=== PATIENT | female | born 1930 | race Caucasian/White ===

== ENCOUNTER 2016-10-16 09:52 | Emergency (ER) | payer OTHER, BC ==
[~2016-10-16] VITALS: Ht 162.6 cm; Wt 56.2 kg
[~2016-10-16 09:52] MED LIST: AMIO200T4 PO; AMLO10TA2 PO; AMOX500C3 PO; ASPI1TAB83 PO; ATOR-22 PO; CHOL1000 PO; FLNIN NAE; HYDR-5688 PO; LEVO125T5 PO; LOSA100T2 PO; MAGN400T6 PO; MILK1CAP PO; MISCCAP80 PO; OMEG10007 PO; POLY335019 PO; PROP160C PO; SENNTAB23 PO; TURM1CAP4 PO; WARF-283 PO; WARF4TAB43 PO; XNX25 PO
[2016-10-16 09:59] VITALS: TEMP 36.7; Ht 162.6 cm; Wt 56.2 kg
[2016-10-16] MEDS ORDERED: OXYCODONE HCL IR 5 MG TAB (IMMEDIATE RELEASE) PO STA (10:15)
--- NOTE | 2016-10-16 10:32 | DIAGNOSTIC IMAGING REPORT ---
LEFT WRIST W/NAVICULAR MIN 3 VIEWS CLINICAL HISTORY: WRIST PAIN pain COMPARISON: None. DISCUSSION: Severe degenerative change first carpometacarpal joint. Moderate degenerative change of all remaining intraosseous regions. Mild chondrocalcinosis. No well-defined evidence for fracture. There is no evidence for soft tissue swelling. IMPRESSION: Severe degenerative change primarily of the first and to lesser extent second carpometacarpal joint. Electronically signed by: Yifan Adame M.D. 10/16/2016 10:30 AM Dictated Date/Time: 10/16/2016 10:29 AM
[2016-10-16] MEDS ORDERED: LOSARTAN-HCTZ PO (11:26)
[2016-10-16] MEDS ORDERED: FLNIN/ INH (11:26)
[2016-10-16] MEDS ORDERED: CELE1CAP30 PO (11:26)
[2016-10-16] MEDS ORDERED: OXYC1TAB3 PO (11:39)
[2016-10-16] MEDS ORDERED: CEPH-571 PO (11:39)
--- NOTE | 2016-10-16 11:44 | EMERGENCY ROOM VISIT NOTE ---
History Report prepared by Maria Elena: Bhavana Gomez Under the Supervision of: Dr. Cabrera Zelaya D.O. First contact with patient: 10:04 Chief Complaint: WRIST PAIN Stated Complaint: LEFT WRIST PAIN History of Present Illness The patient is an 86 year old female who presents to the Emergency Room with complaints of persistent left wrist pain starting 2 days ago. She rates her discomfort as a 10/10 in severity. She woke up in the morning with some wrist pain. She believed she might have done something to it when she was sleeping. Yesterday she did not have as much pain. She was able to go to the gym and do her daily activities, but by the evening the pain had become worse. She was unable to sleep because of the pain. The pain worsens with extension of her arm. She does not remember any trauma to her wrist. She has no history of gout. She is on blood thinners. Source of History: patient Onset: 2 days ago Position: wrist (left) Symptom Intensity: 10/10 Quality: other (pain) Timing: other (persistent) Modifying Factors (Worsening): movement Review of Systems See HPI for pertinent positives & negatives. A total of 10 systems reviewed and were otherwise negative. Past Medical & Surgical Medical Problems: (1) Benign hypertension (2) Hyperlipidemia (3) Microscopic colitis Family History Heart disease Social History Smoking Status: Never Smoker Alcohol Use: occasionally Drug Use: none Marital Status: Housing Status: lives alone Occupation Status: retired Current/Historical Medications Scheduled Amiodarone Hcl (Cordarone), 200 MG PO QAM Amlodipine Besylate (Norvasc), 10 MG PO DAILY Aspirin (Aspirin), 81 MG PO QAM Atorvastatin (Lipitor), 20 MG PO DAILY Cephalexin (Keflex), 1 CAP PO BID Cholecalciferol (Vitamin D3), 2,000 PO DAILY Fish Oil ([place]-3), 1 CAP PO DAILY Fluticasone Propionate (Fluticasone Propionate), 1 SPRAY INH QAM Levothyroxine Sodium (Levothyroxine Sodium), 125 MCG PO QAM Magnesium Oxide (Mag-Ox), 400 MG PO DAILY Milk Thistle (Silybum Marianum (Milk Thistle), 500 MG PO QAM Polyethylene Glycol 3350 (Miralax), 17 GM PO DAILY Probiotic Product (Probiotic), 1 CAP PO QAM Sennosides-Docusate Sodium (Stool Softener), 1 TAB PO DAILY Turmeric (Curcuma Longa) (Turmeric), 500 MG PO QAM Warfarin Sodium (Warfarin Sodium), 2 MG PO UD Warfarin Sodium (Warfarin Sodium), 4 MG PO UD [Losartan-Hctz], 1 TAB PO QAM Scheduled PRN Alprazolam (Alprazolam), 0.5 MG PO HS PRN for Sleep Amoxicillin (Amoxil), 2,000 MG PO UD PRN for Prior To Dental Appointment Celecoxib (Celecoxib), 200 MG PO DAILY PRN for UD Hydrocodone/Acetaminophen 5MG/325MG ([place] 5MG/325MG), 1 TABLET PO Q4 PRN for Pain Hydrocodone/Acetaminophen 5MG/325MG ([place] 5MG/325MG), 1 TABLET PO Q6 PRN for Pain Oxycodone Ir (Roxicodone Ir), 5 MG PO Q6H PRN for Pain Allergies Coded Allergies: Sulfamethoxazole w/Trimethoprim (Verified Allergy, Intermediate, GI UPSET , SHAKING, 04/26/16) Morphine (Verified Adverse Reaction, Intermediate, nausea/vomiting, ) Acetaminophen (Unverified Adverse Reaction, Mild, UNSURE, 10/16/16) Oxycodone (Unverified Adverse Reaction, Mild, UNSURE, 10/16/16) Physical Exam Vital Signs Date Time Temp Pulse Resp B/P Pulse Ox O2 Delivery O2 Flow Rate FiO2 10/16/16 09:59 36.7 59 18 154/68 97 Room Air Physical Exam CONSTITUTIONAL/VITAL SIGNS: Reviewed / noted above. GENERAL: Non-toxic in appearance. INTEGUMENTARY: Warm, dry, and [place]. HEAD: Normocephalic. EYES: without scleral icterus or trauma. ENT/OROPHARYNX: clear and moist. LYMPHADENOPATHY/NECK: Is supple without lymphadenopathy or meningismus. RESPIRATORY: Lungs clear and equal. CARDIOVASCULAR: Regular rate and rhythm. GI/ABDOMEN: Soft and nontender. No organomegaly or pulsatile mass. No rebound or guarding. Normal bowel sounds. EXTREMITIES: Warm and well perfused. Mild redness overlying the lateral wrist in the area of the distal ulna/ulnar styloid. Small scab overlying the area. This is tender to palpation. There is increased pain in the inflamed area with extension of the forearm. BACK: No CVA tenderness. NEUROLOGICAL: Intact without focal deficits. PSYCHIATRIC: normal affect. MUSCULOSKELETAL: Normally developed with good muscle tone. Medical Decision & Procedures ER Provider Diagnostic Interpretation: X ray results and stated below per my interpretation and radiology interpretation. LEFT WRIST W/NAVICULAR MIN 3 VIEWS CLINICAL HISTORY: WRIST PAIN pain COMPARISON: None. DISCUSSION: Severe degenerative change first carpometacarpal joint. Moderate degenerative change of all remaining intraosseous regions. Mild chondrocalcinosis. No well-defined evidence for fracture. There is no evidence for soft tissue swelling. IMPRESSION: Severe degenerative change primarily of the first and to lesser extent second carpometacarpal joint. Electronically signed by: Yifan Adame M.D. 10/16/2016 10:30 AM Dictated Date/Time: 10/16/2016 10:29 AM Medications Administered Medications (Trade) Dose Ordered Sig/Go Route Start Time Stop Time Status Last Admin Dose Admin Oxycodone HCl (Roxicodone Immediate Rel Tab) 5 mg NOW STAT PO 10/16/16 10:15 10/16/16 10:16 DC 10/16/16 10:22 5 MG ED Course 1006: Previous medical records were reviewed. The patient was evaluated in room B3B. A complete history and physical examination was performed. 1015: Oxycodone HCl 5 mg PO. 1122: On reevaluation, the patient is resting comfortably. I discussed the results and findings with the patient. She verbalized agreement of the treatment plan. She was discharged home. Medical Decision Differential diagnoses: cellulitis, osteomyelitis, gout, trauma This is an 86-year-old female who presents to the ED with a chief complaint of left ulnar wrist pain. The patient states that she awoke with it 2 days ago. She seemed to be somewhat better yesterday and was able to work out but last night her pain increases. She came in for evaluation. Her exam reveals normal vital signs and she is afebrile. The left wrist area reveals some erythema overlying the ulnar styloid. There is a small scab in that area as well. She has some tenderness on exam. X-rays did not show any obvious abnormalities other than chronic changes. The patient was started on Keflex. She was given an OxyIR here that seemed to help her pain. She did not have any issue with oxycodone. Her daughter reports that she had gotten nauseated taking some medication previously and it was felt to be related to Percocet. The patient has no other complaints. She is felt to be stable for discharge. Impression Primary Impression: Cellulitis of wrist Scribe Attestation The scribe's documentation has been prepared under my direction and personally reviewed by me in its entirety. I confirm that the note above accurately reflects all work, treatment, procedures, and medical decision making performed by me. Departure Information Dispostion Home / Self-Care Prescriptions Oxycodone Ir (Roxicodone Ir) 5 Mg Tab 5 MG PO Q6H Y for Pain, #15 TAB Prov: Cabrera Zelaya D.O. 10/16/16 Cephalexin (KEFLEX) 500 Mg Cap 1 CAP PO BID for 7 Days, #14 CAP Prov: Cabrera Zelaya D.O. 10/16/16 Referrals Esther Ervin M.D. (PCP) Patient Instructions Cellulitis - [facility], [facility] Additional Instructions Keflex as prescribed for infection. Oxycodone as prescribed. No driving within 6 hours of use. This may cause constipation. Use sparingly. Follow-up with your doctor for recheck early next week if symptoms persist. Return for severe worsening.
[2016-10-16] MEDS ORDERED: CEPHALEXIN MONOHYDRATE 250 MG CAP PO ONE (11:45)
[2016-10-16 12:00] VITALS: BP 114/75; PULSE 73; O2SAT 97
[2017-05-07] MEDS ORDERED: HYZ/10015 PO (00:29)
[2017-05-07] MEDS ORDERED: LEVO112T4 PO (00:34)
[2017-05-07] MEDS ORDERED: ALPR-411 PO (00:36)
[2017-05-07] MEDS ORDERED: ACET-1256 PO (00:37)
[2017-05-07] MEDS ORDERED: MELO7.5T5 PO (00:37)
[2017-05-07] MEDS ORDERED: PRIM50TA29 PO (00:38)
[2017-05-07] MEDS ORDERED: METO50TA7 PO (00:40)
== END 2016-10-16 12:00 | disposition home or self-care (01) ==
LOC: C.EDB 09:53
DX: L03.114 Cellulitis of left upper limb (principal); I10 Essential (primary) hypertension; E78.5 Hyperlipidemia, unspecified; Z79.01 Long term (current) use of anticoagulants; Z79.82 Long term (current) use of aspirin; Z79.899 Other long term (current) drug therapy; Z82.49 Family history of ischemic heart disease and other diseases of the circulatory system

== ENCOUNTER 2017-01-21 10:09 | Emergency (ER) | payer OTHER, BC ==
[~2017-01-21] VITALS: Ht 162.6 cm; Wt 53.6 kg
[~2017-01-21 10:09] MED LIST changes: +CELE1CAP30 PO; -FLNIN NAE; +FLNIN/ INH; +LEVO125T4 PO; -LEVO125T5 PO; -LOSA100T2 PO; +LOSARTAN-HCTZ PO; +OXYC1TAB3 PO; -PROP160C PO
[2017-01-21 10:10] VITALS: TEMP 37; Ht 162.6 cm; Wt 53.6 kg
[2017-01-21] MEDS ORDERED: ONDANSETRON 8 MG/54 ML D5W IV STA (10:24)
[2017-01-21] MEDS ORDERED: SODIUM CHLORIDE 0.9% 1000ML 1,000 ML IV STA (10:24)
[2017-01-21 10:40] LABS: BASO % 0.6 %; BASO ABS # 0.04 K/uL (0-0.2); COMPLETE YES; EOS % 1.1 %; HEMATOCRIT 41.5 % (37-47); IG% 0.3 %; LYMPH % 18.7 %; LYMPH ABS # 1.24 K/uL (1.2-3.4); MEAN CELL VOLUME 97.2 fL (80-100); MEAN CORPUSCULAR HEMOGLOBIN 32.8 pg (25-34); MEAN CORPUSCULAR HGB CONC 33.7 g/dl (32-36); MEAN PLATELET VOLUME 8.5 fL (7.4-10.4); MONO % 13.7 %; NEUT % 65.6 %; PLATELET COUNT 256 K/uL (130-400); RED BLOOD COUNT 4.27 M/uL (4.2-5.4); WHITE BLOOD COUNT 6.64 K/uL (4.8-10.8)
--- NOTE | 2017-01-21 10:45 | DIAGNOSTIC IMAGING REPORT ---
CHEST ONE VIEW PORTABLE CLINICAL HISTORY: Altered mental status. Weakness. COMPARISON STUDY: Chest radiograph March 01, 2014. FINDINGS: Lung volumes are normal. There is no pneumothorax or pleural effusion. Cardiomediastinal silhouette is stable. There is no evidence of pulmonary edema. There is mild levoscoliosis at the thoracolumbar junction. IMPRESSION: No acute cardiopulmonary findings. Electronically signed by: Tommy Benavides M.D. 01/21/2017 10:44 AM Dictated Date/Time: 01/21/2017 10:44 AM
[2017-01-21 10:48] LABS: INR 1.9 (0.9-1.1); PARTIAL THROMBOPLASTIN RATIO 1.3; PROTHROMBIN TIME (PATIENT) 20.9 SECONDS (9.0-12.0)
--- NOTE | 2017-01-21 10:53 | DIAGNOSTIC IMAGING REPORT ---
HEAD WITHOUT CONTRAST (CT) HISTORY: Acute altered mental status and weakness. TECHNIQUE: Multiple axial CT images of the head were obtained without contrast. CT DOSE: 614.27 mGy.cm COMPARISON: CT head 03/01/2014 and 08/02/2012. FINDINGS: No acute intracranial hemorrhage, midline shift, mass, large territorial ischemia or abnormal extra-axial collection. There is moderate cerebral atrophy with confluent areas of low attenuation within the subcortical, deep and periventricular white matter of the cerebral and measures bilaterally suggesting chronic microvascular ischemic changes, slightly progressed from 03/01/2014. 1.4 x 1.0 cm area of low attenuation in the inferior right lentiform nucleus is again seen suggesting remote lacunar infarction. The calvarium is intact. The mastoid air cells and middle ear cavities are clear. Marked mucosal thickening is again seen involving the bilateral maxillary sinuses with near complete opacification of the right sphenoid sinus. Mild mucosal disease is also noted within the ethmoid and frontal sinuses. The periosteal thickening of the sinuses is also appreciated. Partially calcified pannus is seen surrounding the dens. Soft tissues are within normal limits. Prior bilateral cataract repair. IMPRESSION: 1. No acute intracranial abnormality identified. No hemorrhage or area of large territorial ischemia. 2. Moderate cerebral atrophy with progressive chronic microvascular ischemic changes. 3. Severe chronic paranasal sinus disease redemonstrated. The above report was generated using voice recognition software. It may contain grammatical, syntax or spelling errors. Electronically signed by: Albert Dowd M.D. 01/21/2017 10:52 AM Dictated Date/Time: 01/21/2017 10:47 AM
[2017-01-21 10:59] LABS: ALT/SGPT 73 U/L (12-78); AST/SGOT 64 U/L (15-37); BLOOD UREA NITROGEN 18 mg/dl (7-18); BUN/CREATININE RATIO 18.3 (10-20); CALCIUM 9.1 mg/dl (8.5-10.1); CARBON DIOXIDE 28 mmol/L (21-32); CHLORIDE 100 mmol/L (98-107); CREATININE 0.96 mg/dl (0.60-1.20); GLUCOSE 101 mg/dl (70-99); MAGNESIUM 1.7 mg/dl (1.8-2.4); POTASSIUM 4.2 mmol/L (3.5-5.1); SODIUM 135 mmol/L (136-145)
[2017-01-21 11:08] LABS: ALKALINE PHOSPHATASE 108 U/L (45-117); CKMB/CK RATIO 1.3 (0-3.0); THYROID STIMULATING HORMONE 0.338 uIu/ml (0.300-4.500)
[2017-01-21] MEDS ORDERED: PROP60CA5 PO (11:27)
[2017-01-21] MEDS ORDERED: PRIM50TA29 PO (11:28)
[2017-01-21] MEDS ORDERED: DICL1GEL12 TOP (11:30)
--- NOTE | 2017-01-21 11:42 | EMERGENCY ROOM VISIT NOTE ---
History Report prepared by Maria Elena: Toro Curry Under the Supervision of: Dr. Cabrera Zelaya D.O. First contact with patient: 10:16 Chief Complaint: STROKE SYMPTOMS Stated Complaint: WHOLE BODY FEELS ODD History of Present Illness The patient is a 86 year old female who presents to the Emergency Room with complaints of a persistent altered mental status beginning shortly prior to arrival. She states "I don't feel myself". She states that she feels like she is outside of her body. The patient also complains of shakiness and nausea. She states that she feels very unsteady. She denies any headache, abdominal pain, chest pain, SOB, or vomiting. The patient states "I just feel scared" and states "something is wrong". She is on Coumadin, but is not sure for what. She denies any recent cold-like symptoms. The patient notes that she has a history of tremors. She states that her PCP has been increasing her medication for tremors and recently began taking triple the dose of what she was originally taking. Source of History: patient Onset: shortly prior to arrival Quality: other (altered mental status) Timing: other (persistent) Associated Symptoms: + nausea, No headache, No chest pain, No SOB, No abdominal pain Note: The patient also complains of shakiness. Review of Systems See HPI for pertinent positives & negatives. A total of 10 systems reviewed and were otherwise negative. Past Medical & Surgical Medical Problems: (1) Benign hypertension (2) Hyperlipidemia (3) Microscopic colitis Family History Heart disease Social History Smoking Status: Never Smoker Alcohol Use: occasionally Drug Use: none Marital Status: Housing Status: lives alone Occupation Status: retired Current/Historical Medications Scheduled Amiodarone Hcl (Cordarone), 200 MG PO QAM Amlodipine Besylate (Norvasc), 10 MG PO QAM Aspirin (Aspirin), 81 MG PO QAM Atorvastatin (Lipitor), 20 MG PO DAILY Cholecalciferol (Vitamin D3), 2,000 PO DAILY Diclofenac Sodium (Topical) (Voltaren 1% Top Gel), 2 GM TOP UD Fish Oil ([place]-3), 1 CAP PO DAILY Fluticasone Propionate (Fluticasone Propionate), 1 SPRAY INH QAM Levothyroxine Sodium (Levothyroxine Sodium), 125 MCG PO QAM Magnesium Oxide (Mag-Ox), 400 MG PO HS Milk Thistle (Silybum Marianum (Milk Thistle), 500 MG PO QAM Polyethylene Glycol 3350 (Miralax), 17 GM PO DAILY Primidone (Mysoline), 50 MG PO QAM Probiotic Product (Probiotic), 1 CAP PO QAM Propranolol La (Inderal La), 160 MG PO QAM Sennosides-Docusate Sodium (Stool Softener), 1 TAB PO DAILY Turmeric (Curcuma Longa) (Turmeric), 500 MG PO QAM Warfarin Sodium (Warfarin Sodium), 2 MG PO UD Warfarin Sodium (Warfarin Sodium), 4 MG PO UD [Losartan-Hctz], 1 TAB PO QAM Scheduled PRN Amoxicillin (Amoxil), 2,000 MG PO UD PRN for Prior To Dental Appointment Hydrocodone/Acetaminophen 5MG/325MG ([place] 5MG/325MG), 1 TABLET PO Q4 PRN for Pain Allergies Coded Allergies: Sulfamethoxazole w/Trimethoprim (Verified Allergy, Intermediate, GI UPSET , SHAKING, 01/21/17) Morphine (Verified Adverse Reaction, Intermediate, nausea/vomiting, ) Acetaminophen (Unverified Adverse Reaction, Mild, UNSURE, 01/21/17) Oxycodone (Unverified Adverse Reaction, Mild, UNSURE, 01/21/17) Physical Exam Vital Signs Date Time Temp Pulse Resp B/P (MAP) Pulse Ox O2 Delivery O2 Flow Rate FiO2 01/21/17 11:12 68 18 136/56 95 Room Air 01/21/17 10:27 64 01/21/17 10:10 37.0 65 22 144/64 95 Room Air Physical Exam VITAL SIGNS: were reviewed as above. GENERAL:Non-toxic in appearance. SKIN: Warm dry and pink. HEAD: Normocephalic and atraumatic. OROPHARYNX: Is clear and moist NECK: Supple without lymphadenopathy or meningismus. LUNGS: clear. HEART: Regular rate and rhythm. ABDOMEN: Soft and nontender. EXTREMITIES: Warm and well perfused. NEUROLOGICALLY: Awake alert and oriented without focal deficit. Cranial nerves 2 -12 are intact. There is no pronator drift. Cerebellar testing is within normal limits. There is no nystagmus. There is no facial droop. Speech is clear. Vision is grossly normal. Continuous light tremors in the hands. MUSCULOSKELETAL: Good muscle tone. No evidence of trauma. Medical Decision & Procedures ER Provider Diagnostic Interpretation: Radiology results as stated below per my review and radiologist interpretation: HEAD WITHOUT CONTRAST (CT) FINDINGS: No acute intracranial hemorrhage, midline shift, mass, large territorial ischemia or abnormal extra-axial collection. There is moderate cerebral atrophy with confluent areas of low attenuation within the subcortical, deep and periventricular white matter of the cerebral and measures bilaterally suggesting chronic microvascular ischemic changes, slightly progressed from 03/01/2014. 1.4 x 1.0 cm area of low attenuation in the inferior right lentiform nucleus is again seen suggesting remote lacunar infarction. The calvarium is intact. The mastoid air cells and middle ear cavities are clear. Marked mucosal thickening is again seen involving the bilateral maxillary sinuses with near complete opacification of the right sphenoid sinus. Mild mucosal disease is also noted within the ethmoid and frontal sinuses. The periosteal thickening of the sinuses is also appreciated. Partially calcified pannus is seen surrounding the dens. Soft tissues are within normal limits. Prior bilateral cataract repair. IMPRESSION: 1. No acute intracranial abnormality identified. No hemorrhage or area of large territorial ischemia. 2. Moderate cerebral atrophy with progressive chronic microvascular ischemic changes. 3. Severe chronic paranasal sinus disease redemonstrated. The above report was generated using voice recognition software. It may contain grammatical, syntax or spelling errors. Electronically signed by: Albert Dowd M.D. CHEST ONE VIEW PORTABLE FINDINGS: Lung volumes are normal. There is no pneumothorax or pleural effusion. Cardiomediastinal silhouette is stable. There is no evidence of pulmonary edema. There is mild levoscoliosis at the thoracolumbar junction. IMPRESSION: No acute cardiopulmonary findings. Electronically signed by: Tommy Benavides M.D. Laboratory Results 01/21/17 10:22 Red Blood Count 4.27, Mean Corpuscular Volume 97.2, Mean Corpuscular Hemoglobin 32.8, Mean Corpuscular Hemoglobin Concent 33.7, Mean Platelet Volume 8.5, Neutrophils (%) (Auto) 65.6, Lymphocytes (%) (Auto) 18.7, Monocytes (%) (Auto) 13.7, Eosinophils (%) (Auto) 1.1, Basophils (%) (Auto) 0.6, Neutrophils # (Auto ) 4.36, Lymphocytes # (Auto) 1.24, Monocytes # (Auto) 0.91, Eosinophils # (Auto ) 0.07, Basophils # (Auto) 0.04 01/21/17 10:22 Test 01/21/17 10:22 White Blood Count 6.64 K/uL (4.8-10.8) Red Blood Count 4.27 M/uL (4.2-5.4) Hemoglobin 14.0 g/dL (12.0-16.0) Hematocrit 41.5 % (37-47) Mean Corpuscular Volume 97.2 fL (80-100) Mean Corpuscular Hemoglobin 32.8 pg (25-34) Mean Corpuscular Hemoglobin Concent 33.7 g/dl (32-36) Platelet Count 256 K/uL (130-400) Mean Platelet Volume 8.5 fL (7.4-10.4) Neutrophils (%) (Auto) 65.6 % Lymphocytes (%) (Auto) 18.7 % Monocytes (%) (Auto) 13.7 % Eosinophils (%) (Auto) 1.1 % Basophils (%) (Auto) 0.6 % Neutrophils # (Auto) 4.36 K/uL (1.4-6.5) Lymphocytes # (Auto) 1.24 K/uL (1.2-3.4) Monocytes # (Auto) 0.91 K/uL (0.11-0.59) Eosinophils # (Auto) 0.07 K/uL (0-0.5) Basophils # (Auto) 0.04 K/uL (0-0.2) RDW Standard Deviation 48.8 fL (36.4-46.3) RDW Coefficient of Variation 13.8 % (11.5-14.5) Immature Granulocyte % (Auto) 0.3 % Immature Granulocyte # (Auto) 0.02 K/uL (0.00-0.02) Prothrombin Time 20.9 SECONDS (9.0-12.0) Prothromb Time International Ratio 1.9 (0.9-1.1) Activated Partial Thromboplast Time 33.8 SECONDS (21.0-31.0) Partial Thromboplastin Ratio 1.3 Anion Gap 7.0 mmol/L (3-11) Est Creatinine Clear Calc Drug Dose 36.3 ml/min Estimated GFR () 62.5 Estimated GFR (Non- 53.9 BUN/Creatinine Ratio 18.3 (10-20) Calcium Level 9.1 mg/dl (8.5-10.1) Magnesium Level 1.7 mg/dl (1.8-2.4) Total Bilirubin 0.7 mg/dl (0.2-1) Direct Bilirubin 0.2 mg/dl (0-0.2) Aspartate Amino Transf (AST/SGOT) 64 U/L (15-37) Alanine Aminotransferase (ALT/SGPT) 73 U/L (12-78) Alkaline Phosphatase 108 U/L (45-117) Total Creatine Kinase 76 U/L (26-192) Creatine Kinase MB 1.0 ng/ml (0.5-3.6) Creatine Kinase MB Ratio 1.3 (0-3.0) Troponin I < 0.015 ng/ml (0-0.045) Total Protein 7.4 gm/dl (6.4-8.2) Albumin 3.5 gm/dl (3.4-5.0) Lipase 167 U/L (73-393) Thyroid Stimulating Hormone (TSH) 0.338 uIu/ml (0.300-4.500) Laboratory results as stated above per my review. Medications Administered Medications (Trade) Dose Ordered Sig/Go Route Start Time Stop Time Status Last Admin Dose Admin Sodium Chloride 1,000 ml @ 999 mls/hr Q1H1M STAT IV 01/21/17 10:24 01/21/17 11:24 DC 01/21/17 10:33 999 MLS/HR Ondansetron HCl (Zofran 8mg Iv) 8 mg NOW STAT IV 01/21/17 10:24 01/21/17 10:25 DC 01/21/17 10:33 8 MG ECG Indication: altered mental status Rate (beats per minute): 64 Rhythm: normal sinus Findings: RBBB, T-wave inversion (Inferior) Comparison ECG Date: March 01, 2014 Change: Slight T-wave changes likely related to lead placement. ED Course 1018: Previous medical records were reviewed. The patient was evaluated in room B4B. A complete history and physical examination was performed. 1024: Ordered Zofran 8 mg IV, Sodium Chloride 1000 ml @ 999 mls/hr IV. 11:39 Reassessment. Patient w/o additional complaints. Medical Decision Differential includes acute coronary syndrome, myocardial infarction, CVA, TIA, anemia, infection, pneumonia, UTI, pyelonephritis, poor nutrition, dehydration, electrolyte disturbance, hypoglycemia. This is an 86-year-old female who presents to the ED with a chief complaint of not feeling herself this morning. The patient states that she awoke around 6 AM and felt weird as if something was wrong. She felt a little weak and unsteady and shaky. She reports a history of tremors. She states that her doctors placed her on some medication and her tremors have worsened. They have not improved. She has a history of paroxysmal A. fib. She is on Coumadin. She denies any additional specific symptoms. Her vital signs are stable. Her physical exam and neuro exam were unremarkable with exception of a mild continuous tremor. This tremor is noticeable in the hands. The patient has no other significant findings on exam. A CT scan of the head did not show any acute process. A chest x-ray did not show any acute disease. INR is 1.9. CBC and complete metabolic panel were unremarkable. The patient was treated with Zofran and fluids IV. She was told the results. She is felt to be stable for discharge and outpatient follow-up. Medication Reconcilliation Current Medication List: was personally reviewed by me Blood Pressure Screening Patient's blood pressure: Elevated blood pressure Blood pressure disposition: Referred to PCP Impression Primary Impression: Weakness Scribe Attestation The scribe's documentation has been prepared under my direction and personally reviewed by me in its entirety. I confirm that the note above accurately reflects all work, treatment, procedures, and medical decision making performed by me. Departure Information Dispostion Home / Self-Care Referrals Esther Ervin M.D. (PCP) Patient Instructions My [facility] Additional Instructions Follow-up with your doctor for further care and evaluation in 1-2 days. Return to the emergency department for worsening or new symptoms or any concerns. You have been examined and treated today on an emergency basis only. This is not a substitute for, or an effort to provide, complete comprehensive medical care. It is impossible to recognize and treat all injuries or illnesses in a single emergency department visit. It is therefore important that you follow up closely with your doctor. Call as soon as possible for an appointment.
[2017-01-21 12:04] VITALS: BP 152/62; PULSE 72; O2SAT 97
== END 2017-01-21 12:05 | disposition home or self-care (01) ==
LOC: C.EDB 10:10
DX: R53.1 Weakness (principal); I48.0 Paroxysmal atrial fibrillation; I10 Essential (primary) hypertension; E78.5 Hyperlipidemia, unspecified; Z79.01 Long term (current) use of anticoagulants; Z79.82 Long term (current) use of aspirin; Z79.899 Other long term (current) drug therapy

== ENCOUNTER 2017-09-21 09:48 | Emergency (ER) | payer OTHER, BC ==
[~2017-09-21] VITALS: Ht 162.6 cm; Wt 59.2 kg
[~2017-09-21 09:48] MED LIST changes: +ACET-1256 PO; +ALPR-411 PO; -CELE1CAP30 PO; +DICL1GEL12 TOP; +HYZ/10015 PO; +LEVO112T4 PO; -LEVO125T4 PO; +LEVO125T5 PO; -LOSARTAN-HCTZ PO; +MELO7.5T5 PO; +METO50TA8 PO; -OXYC1TAB3 PO; +PRIM50TA29 PO; -XNX25 PO
[2017-09-21 09:51] VITALS: TEMP 36.7; Ht 162.6 cm; Wt 59.2 kg
[2017-09-21] MEDS ORDERED: KETOROLAC TROMETHAMINE 60 MG/2 ML VIAL IM STA (10:28)
[2017-09-21 11:20] VITALS: BP 149/57; PULSE 68; O2SAT 96
--- NOTE | 2017-09-21 11:27 | DIAGNOSTIC IMAGING REPORT ---
R PELVIS/UNILATERAL HIP 2-3VIEWS CLINICAL HISTORY: r hip pain pain COMPARISON: None. DISCUSSION: Significant degenerative change of the hips bilaterally. No evidence for fracture or dislocation. Slightly heterogeneous bone marrow mineralization. Considerable degenerative changes low lumbar spine. There is no evidence for soft tissue swelling. IMPRESSION: Significant degenerative change of both hips. No acute bony abnormality. Heterogeneous bone density characteristics. Bone scan on a routine basis is suggested when the patient is able. The above report was generated using voice recognition software. It may contain grammatical, syntax or spelling errors. Electronically signed by: Yifan Adame M.D. 09/21/2017 11:25 AM Dictated Date/Time: 09/21/2017 11:21 AM
--- NOTE | 2017-09-21 11:29 | DIAGNOSTIC IMAGING REPORT ---
LUMBAR SPINE 2 OR 3 VIEWS CLINICAL HISTORY: r SI pain pain COMPARISON STUDY: None FINDINGS: Considerable degenerative disc change at the entire lumbar region. Severe loss of joint space throughout. Moderate scoliosis. No evidence for an acute compression deformity. IMPRESSION: Severe degenerative change. No acute bony abnormality. The above report was generated using voice recognition software. It may contain grammatical, syntax or spelling errors. Electronically signed by: Yifan Adame M.D. 09/21/2017 11:27 AM Dictated Date/Time: 09/21/2017 11:27 AM
--- NOTE | 2017-09-21 11:33 | DIAGNOSTIC IMAGING REPORT ---
R KNEE 3 VIEWS CLINICAL HISTORY: r knee pain pain COMPARISON: None. DISCUSSION: Severe degenerative change all major joint compartments. This is most prominent medially where [id number] configuration is present. There is diffuse irregularity of the articular services the medial joint compartment and to lesser extent patellofemoral joint. Chondrocalcinosis is present. Degenerative changes of patellofemoral joint is significant. No evidence for significant joint effusion. There is no evidence for soft tissue swelling. IMPRESSION: Severe degenerative change primarily the medial joint compartment. Chondrocalcinosis. No acute bony abnormality. The above report was generated using voice recognition software. It may contain grammatical, syntax or spelling errors. Electronically signed by: Yifan Adame M.D. 09/21/2017 11:31 AM Dictated Date/Time: 09/21/2017 11:31 AM
--- NOTE | 2017-09-21 11:35 | DIAGNOSTIC IMAGING REPORT ---
R SHOULDER MIN 2 VIEWS ROUTINE CLINICAL HISTORY: r shoulder pain pain COMPARISON: None. DISCUSSION: Moderate degenerative change glenohumeral joint. Mild calcific supraspinatus tendinitis. No evidence for fracture or dislocation. Right pulmonary apex is clear. There is no evidence for soft tissue swelling. IMPRESSION: 1. Mild/moderate calcific supraspinatus tendinitis. 2. Moderate degenerative change glenohumeral joint. The above report was generated using voice recognition software. It may contain grammatical, syntax or spelling errors. Electronically signed by: Yifan Adame M.D. 09/21/2017 11:33 AM Dictated Date/Time: 09/21/2017 11:33 AM
[2017-09-21] MEDS ORDERED: ACET-749 PO (11:52)
[2017-09-21] MEDS ORDERED: TYLENOL #3 HOME PACK PO ONE (12:00)
--- NOTE | 2017-09-21 17:24 | EMERGENCY ROOM VISIT NOTE ---
History Report prepared by Maria Elena: Bhavana Gomez Under the Supervision of: Dr. Itz Mariano D.O. First contact with patient: 10:12 Chief Complaint: PAIN (GENERALIZED) Stated Complaint: PAIN IN RIGHT SHOULDER AND KNEE History of Present Illness The patient is an 87 year old female who presents to the Emergency Room with complaints of intermittent right sided pain starting 3 months ago. The patient has been having pain in her right shoulder, hip, and knee. She currently rates her discomfort as a 10/10 in severity. Pain is mahoney and stabbing. This pain worsens with movement. She is on pain medications which have not been helping her pain. She denies any fall or trauma. She denies any numbness, weakness, groin numbness, headache, chest pain, SOB, abdominal pain, rash, or incontinence. The patient has been using her right arm as she is right handed. Source of History: patient Onset: 3 months ago Position: shoulder (right), knee (right), other (right hip) Symptom Intensity: 10/10 Quality: other (pain) Modifying Factors (Worsening): movement Associated Symptoms: No headache, No chest pain, No SOB, No abdominal pain, No weakness, No numbness, No rash Review of Systems See HPI for pertinent positives & negatives. A total of 10 systems reviewed and were otherwise negative. Past Medical & Surgical Medical Problems: (1) Benign hypertension (2) Hyperlipidemia (3) Microscopic colitis Family History Heart disease Social History Smoking Status: Never Smoker Alcohol Use: occasionally Drug Use: none Marital Status: Housing Status: lives alone Occupation Status: retired Current/Historical Medications Scheduled Amiodarone Hcl (Cordarone), 200 MG PO QAM Amlodipine Besylate (Norvasc), 10 MG PO QAM Aspirin (Aspirin), 81 MG PO QAM Atorvastatin (Lipitor), 20 MG PO DAILY Cholecalciferol (Vitamin D3), 2,000 PO DAILY Diclofenac Sodium (Topical) (Voltaren 1% Top Gel), 2 GM TOP UD Fish Oil ([place]-3), 1 CAP PO DAILY Hctz/Losartan (Hyzaar 25MG/100MG), 1 TAB PO QAM Levothyroxine Sodium (Levothyroxine Sodium), 125 MCG PO QAM Levothyroxine Sodium (Levothyroxine Sodium), 112 MCG PO DAILY Magnesium Oxide (Mag-Ox), 400 MG PO HS Metoprolol Succ (Toprol Xl) (Toprol-Xl), 50 MG PO DAILY Milk Thistle (Silybum Marianum (Milk Thistle), 500 MG PO QAM Primidone (Mysoline), 50 MG PO TID Probiotic Product (Probiotic), 1 CAP PO QAM Turmeric (Curcuma Longa) (Turmeric), 500 MG PO QAM Warfarin Sodium (Warfarin Sodium), 2 MG PO 3XWK Warfarin Sodium (Warfarin Sodium), 4 MG PO 4XWK Scheduled PRN Acetaminophen (Tylenol), 1,000 MG PO TID PRN for Pain Acetaminophen/Codeine (Tylenol W/Codeine #3), 1 TABS PO TID PRN for Pain Amoxicillin (Amoxil), 2,000 MG PO UD PRN for Prior To Dental Appointment Fluticasone Propionate (Fluticasone Propionate), 1 SPRAY INH QAM PRN for CONGESTION Hydrocodone/Acetaminophen 5MG/325MG ([place] 5MG/325MG), 1 TABLET PO Q4 PRN for Pain Meloxicam (Mobic), 7.5 MG PO DAILY PRN for Pain Polyethylene Glycol 3350 (Miralax), 17 GM PO DAILY PRN for Constipation Sennosides-Docusate Sodium (Stool Softener), 1 TAB PO DAILY PRN for Constipation Allergies Coded Allergies: Sulfamethoxazole w/Trimethoprim (Verified Allergy, Intermediate, GI UPSET , SHAKING, 01/21/17) Morphine (Verified Adverse Reaction, Intermediate, nausea/vomiting, ) Acetaminophen (Unverified Adverse Reaction, Mild, UNSURE, 01/21/17) Oxycodone (Unverified Adverse Reaction, Mild, UNSURE, 01/21/17) Physical Exam Vital Signs Date Time Temp Pulse Resp B/P (MAP) Pulse Ox O2 Delivery O2 Flow Rate FiO2 09/21/17 11:20 68 18 149/57 96 Room Air 09/21/17 09:51 36.7 74 20 138/65 98 Room Air Physical Exam GENERAL: Sitting up in bed, holding right shoulder internally rotated against chest, minimal distress. EYE EXAM: normal conjunctiva. OROPHARYNX: no exudate, no erythema, lips, buccal mucosa, and tongue normal and mucous membranes are moist NECK: supple, no nuchal rigidity, no adenopathy, non-tender LUNGS: Clear to auscultation. Normal chest wall mechanics HEART: no murmurs, S1 normal and S2 normal ABDOMEN: abdomen soft, non-tender, normo-active bowel sounds, no masses, no rebound or guarding. BACK: Back is symmetrical on inspection and there is no deformity, no midline tenderness, no CVA tenderness. Acute reproducible tenderness over the right SI joint tracking minimally into right gluteus. SKIN: no rashes and no bruising UPPER EXTREMITIES: Right shoulder moderate pain with abduction greater than 30 degrees and on palpation of humeral head. Flexion/extension elbow, wrist, grasp , abduction of digits intact. Radial pulses 2/4. LOWER EXTREMITIES: Flexion extension hip, knee, ankle, EHL 5/5 bilaterally. NEURO EXAM: Normal sensorium, cranial nerves II-XII grossly intact. Medical Decision & Procedures ER Provider Diagnostic Interpretation: Radiology results as stated below per my review and the radiologist's interpretation: R SHOULDER MIN 2 VIEWS ROUTINE CLINICAL HISTORY: r shoulder pain pain COMPARISON: None. DISCUSSION: Moderate degenerative change glenohumeral joint. Mild calcific supraspinatus tendinitis. No evidence for fracture or dislocation. Right pulmonary apex is clear. There is no evidence for soft tissue swelling. IMPRESSION: 1. Mild/moderate calcific supraspinatus tendinitis. 2. Moderate degenerative change glenohumeral joint. The above report was generated using voice recognition software. It may contain grammatical, syntax or spelling errors. Electronically signed by: Yifan Adame M.D. 09/21/2017 11:33 AM Dictated Date/Time: 09/21/2017 11:33 AM LUMBAR SPINE 2 OR 3 VIEWS CLINICAL HISTORY: r SI pain pain COMPARISON STUDY: None FINDINGS: Considerable degenerative disc change at the entire lumbar region. Severe loss of joint space throughout. Moderate scoliosis. No evidence for an acute compression deformity. IMPRESSION: Severe degenerative change. No acute bony abnormality. The above report was generated using voice recognition software. It may contain grammatical, syntax or spelling errors. Electronically signed by: Yifan Adame M.D. 09/21/2017 11:27 AM Dictated Date/Time: 09/21/2017 11:27 AM R KNEE 3 VIEWS CLINICAL HISTORY: r knee pain pain COMPARISON: None. DISCUSSION: Severe degenerative change all major joint compartments. This is most prominent medially where [id number] configuration is present. There is diffuse irregularity of the articular services the medial joint compartment and to lesser extent patellofemoral joint. Chondrocalcinosis is present. Degenerative changes of patellofemoral joint is significant. No evidence for significant joint effusion. There is no evidence for soft tissue swelling. IMPRESSION: Severe degenerative change primarily the medial joint compartment. Chondrocalcinosis. No acute bony abnormality. The above report was generated using voice recognition software. It may contain grammatical, syntax or spelling errors. Electronically signed by: Yifan Adame M.D. 09/21/2017 11:31 AM Dictated Date/Time: 09/21/2017 11:31 AM R PELVIS/UNILATERAL HIP 2-3VIEWS CLINICAL HISTORY: r hip pain pain COMPARISON: None. DISCUSSION: Significant degenerative change of the hips bilaterally. No evidence for fracture or dislocation. Slightly heterogeneous bone marrow mineralization. Considerable degenerative changes low lumbar spine. There is no evidence for soft tissue swelling. IMPRESSION: Significant degenerative change of both hips. No acute bony abnormality. Heterogeneous bone density characteristics. Bone scan on a routine basis is suggested when the patient is able. The above report was generated using voice recognition software. It may contain grammatical, syntax or spelling errors. Electronically signed by: Yifan Adame M.D. 09/21/2017 11:25 AM Dictated Date/Time: 09/21/2017 11:21 AM Medications Administered Medications (Trade) Dose Ordered Sig/Go Route Start Time Stop Time Status Last Admin Dose Admin Ketorolac Tromethamine (Toradol Inj) 10 mg NOW STAT IM 09/21/17 10:28 09/21/17 10:30 DC 09/21/17 10:47 10 MG Acetaminophen/ Codeine Phosphate (TYLENOL W/ CODEINE #3 Home Pack) 1 homepack UD ONCE PO 09/21/17 12:00 09/21/17 12:01 DC 09/21/17 11:58 1 HOMEPACK ED Course ED COURSE: Vital signs were reviewed and showed normal vitals. The patients medical record was reviewed The above diagnostic studies were performed and reviewed. ED treatments and interventions as stated above. 1022: The patient was evaluated in room B3B. A complete history and physical examination was performed. 1028: Toradol Inj 10 mg IM. 1149: Upon reevaluation, the patient is resting comfortably. I discussed my findings with the patient and she understands and agrees with the treatment plan. Based on the patients age, coexisting illnesses, exam and lab findings the decision to treat as an outpatient was made. The patient remained stable while under my care. The patient appeared well at the time of discharge. 1200: Acetaminophen/Codeine Phosphate 1 homepack PO. Medical Decision Differential diagnosis: Etiologies such as fracture, dislocation, neurovascular compromise, compartment syndrome, soft tissue injury, as well as others were entertained. Patient is an 87-year-old female who presents the ER for right shoulder, hip and knee pain. Shoulder appears to be musculoskeletal. Hip and knee, and back show degenerative changes. 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 Offered narcotics but she would like drive home. I gave her T3's due to her allergies. She is able to take Tylenol but she notes this does not work. Discussed with Pt concerning signs and symptoms to watch out for. Pt was instructed to follow up with their PCP and discussed with the patient their option to return to the ED at anytime for persistent or worsening symptoms. The appropriate anticipatory guidance and out- patient management, including indications for return to the emergency department , were explained at length to the patient and understood. Medication Reconcilliation Current Medication List: was personally reviewed by me Blood Pressure Screening Patient's blood pressure: Normal blood pressure Blood pressure disposition: Did not require urgent referral Impression Primary Impression: Back pain Additional Impressions: Tendonitis Right hip pain Right knee pain Scribe Attestation The scribe's documentation has been prepared under my direction and personally reviewed by me in its entirety. I confirm that the note above accurately reflects all work, treatment, procedures, and medical decision making performed by me. Departure Information Dispostion Home / Self-Care Prescriptions Acetaminophen/Codeine (Tylenol W/Codeine #3) 300 Mg/30 Mg Tab 1 TABS PO TID Y for Pain, #14 TAB Prov: Itz Mariano, 09/21/17 Referrals Esther Ervin M.D. (PCP) Forms HOME CARE DOCUMENTATION FORM, IMPORTANT VISIT INFORMATION, WORK / SCHOOL INSTRUCTIONS Patient Instructions Back Pain - [facility], ED Shoulder Pain O, My [facility] Additional Instructions Please follow up with your primary care doctor with in the next 24 hours. Any worsening of your symptoms, please return to the ED immediately. This includes any fevers greater than 100.4, worsening pain, chest pain, shortness breath, persistent nausea, vomiting, unable to eat or drink, or any other concerning signs or symptoms from your standpoint. You were given medications during this visit that will inhibit your ability to drive, operate machinery and work. Please do NOT drive, operate machinery or work for the next 12hrs. You were also given a prescription for a narcotic. While taking this medication you should also not drive, operate machinery and or work. Problem Qualifiers Primary Impression: Back pain Back pain location: back pain in unspecified location Chronicity: unspecified Back pain laterality: unspecified Qualified Codes: M54.9 - Dorsalgia, unspecified Additional Impressions: Right knee pain Chronicity: acute Qualified Codes: M25.561 - Pain in right knee
== END 2017-09-21 12:05 | disposition home or self-care (01) ==
LOC: C.EDB 09:49
DX: M54.9 Dorsalgia, unspecified (principal); M75.21 Bicipital tendinitis, right shoulder; M25.551 Pain in right hip; M25.561 Pain in right knee; I10 Essential (primary) hypertension; E78.5 Hyperlipidemia, unspecified; Z79.82 Long term (current) use of aspirin; Z79.01 Long term (current) use of anticoagulants; Z88.2 Allergy status to sulfonamides; Z88.6 Allergy status to analgesic agent; Z82.49 Family history of ischemic heart disease and other diseases of the circulatory system

== ENCOUNTER → 2017-11-09 | Outpatient (CLI) | payer OTHER, BC ==
[~2017-11-09] MED LIST changes: +ACET-749 PO; -ALPR-411 PO
--- NOTE | 2017-11-09 14:28 | DIAGNOSTIC IMAGING REPORT ---
ANKLE BRACHIAL INDEX COMPLETE CLINICAL HISTORY: 87 years-old Female presenting with BILATERAL NON PRESSURE CHRONIC ULCER. TECHNIQUE: Ankle brachial indices were obtained. COMPARISON: None. FINDINGS: Brachial: Right: 146 mmHg. Left: 141 mmHg. Ankle (posterior tibial): Right: 187 mmHg. Left: 173 mmHg. Ankle (dorsalis pedis): Right: 148 mmHg. Left: 171 mmHg. Ankle/brachial index: Right: 1.01-1.28, Left: 1.17-1.18. Reference ranges: Normal DEBORAH 1.0-1.4; 0.9-0.99 borderline; less than 0.9 abnormal. IMPRESSION: Normal bilateral ankle-brachial indices. Electronically signed by: Luigi Rowland M.D. 11/09/2017 2:27 PM Dictated Date/Time: 11/09/2017 2:19 PM
== END | disposition home or self-care (01) ==
LOC: C.ULTR 13:33
PROVIDERS: ATTEND Podiatrist Foot & Ankle Surgery
DX: L97.521 Non-pressure chronic ulcer of other part of left foot limited to breakdown of skin (principal)